=== PATIENT | male | born 1965 | race Two or more races ===

== ENCOUNTER 2025-03-09 19:16 | Emergency (ER) | payer OTHER ==
[~2025-03-09] VITALS: Ht 160 cm; Wt 75.7 kg
[2025-03-09] MEDS ORDERED: TDAP [DIPH/PERTUSSIS/TET] 0.5 ML VIAL IM ONE (20:32)
[2025-03-09] MEDS: TDAP [DIPH/PERTUSSIS/TET] 0.5 ML VIAL IM ONE (20:37)
[2025-03-09 23:41] VITALS: BP 118/70; TEMP 98; O2SAT 96
== END 2025-03-09 23:42 ==
LOC: ER 19:23
DX: S00.83XA Contusion of other part of head, initial encounter (principal); S70.311A Abrasion, right thigh, initial encounter; Z02.89 Encounter for other administrative examinations; Z65.3 Problems related to other legal circumstances; Z86.73 Personal history of transient ischemic attack (TIA), and cerebral infarction without residual deficits; V89.9XXA Person injured in unspecified vehicle accident, initial encounter; Y93.89 Activity, other specified; Y92.410 Unspecified street and highway as the place of occurrence of the external cause; Y99.8 Other external cause status
CPT/HCPCS: 70450-TC; 72125-TC; 90715